=== PATIENT | female | born 1950 | race Two or more races ===

== ENCOUNTER → 2017-08-28 | Outpatient (CLI) | payer OTHER | END | disposition home or self-care (01) | LOC: RAD 12:30 | DX: M12.862 Other specific arthropathies, not elsewhere classified, left knee (principal); M17.12 Unilateral primary osteoarthritis, left knee ==

== ENCOUNTER 2018-01-06 12:44 | Outpatient (CLI) | payer OTHER | END 2018-01-06 12:50 | disposition home or self-care (01) | LOC: MAMO-SONO 12:44 | DX: Z12.31 Encounter for screening mammogram for malignant neoplasm of breast (principal); N62 Hypertrophy of breast; N95.0 Postmenopausal bleeding ==

== ENCOUNTER 2018-10-24 09:40 | Outpatient (CLI) | payer OTHER | END 2018-10-24 09:42 | disposition home or self-care (01) | LOC: RAD 09:40 | DX: M19.90 Unspecified osteoarthritis, unspecified site (principal); M12.88 Other specific arthropathies, not elsewhere classified, other specified site ==

== ENCOUNTER 2018-11-06 11:15 | Outpatient (CLI) | payer OTHER | END 2018-11-06 11:24 | disposition home or self-care (01) | LOC: SONOGRAMA 11:15 | DX: M12.9 Arthropathy, unspecified (principal) ==

== ENCOUNTER → 2019-09-28 | Outpatient (CLI) | payer OTHER | END | disposition home or self-care (01) | LOC: MAMO-SONO 10:15 | PROVIDERS: ATTEND Obstetrics & Gynecology Maternal & Fetal Medicine | DX: Z12.31 Encounter for screening mammogram for malignant neoplasm of breast (principal); N63.10 Unspecified lump in the right breast, unspecified quadrant; N63.20 Unspecified lump in the left breast, unspecified quadrant; N64.4 Mastodynia; N60.11 Diffuse cystic mastopathy of right breast ==

== ENCOUNTER 2019-10-07 14:20 | Outpatient (CLI) | payer OTHER | END 2019-10-07 14:33 | disposition home or self-care (01) | LOC: NUCLEAR 14:20 | PROVIDERS: ATTEND Obstetrics & Gynecology Maternal & Fetal Medicine | DX: M81.0 Age-related osteoporosis without current pathological fracture (principal) ==

== ENCOUNTER 2020-08-03 11:07 | Outpatient (CLI) | payer OTHER | END 2020-08-03 11:43 | disposition home or self-care (01) | LOC: RAD 11:07 | PROVIDERS: ATTEND Internal Medicine Cardiovascular Disease | DX: M54.5 Low back pain (principal); M48.47XA Fatigue fracture of vertebra, lumbosacral region, initial encounter for fracture ==

== ENCOUNTER 2020-11-03 08:17 | Outpatient (CLI) | payer OTHER | END 2020-11-03 08:37 | disposition home or self-care (01) | LOC: MAMO-SONO 08:17 | PROVIDERS: ATTEND Obstetrics & Gynecology Maternal & Fetal Medicine | DX: N60.11 Diffuse cystic mastopathy of right breast (principal); N63.0 Unspecified lump in unspecified breast; N64.4 Mastodynia; Z12.31 Encounter for screening mammogram for malignant neoplasm of breast ==

== ENCOUNTER 2020-12-28 12:35 | Outpatient (CLI) | payer OTHER | END 2020-12-28 12:38 | disposition home or self-care (01) | LOC: NUCLEAR 12:35 | PROVIDERS: ATTEND Obstetrics & Gynecology Maternal & Fetal Medicine | DX: M81.0 Age-related osteoporosis without current pathological fracture (principal) ==

== ENCOUNTER 2021-11-06 12:24 | Outpatient (CLI) | payer OTHER | END 2021-11-06 12:37 | disposition home or self-care (01) | LOC: MAMO-SONO 12:24 | PROVIDERS: ATTEND Obstetrics & Gynecology Maternal & Fetal Medicine | DX: Z12.31 Encounter for screening mammogram for malignant neoplasm of breast (principal); N63.0 Unspecified lump in unspecified breast; N64.4 Mastodynia; N60.11 Diffuse cystic mastopathy of right breast ==

== ENCOUNTER → 2021-11-10 | Outpatient (CLI) | payer OTHER | END | disposition home or self-care (01) | LOC: MRI 12:57 | PROVIDERS: ATTEND Obstetrics & Gynecology Maternal & Fetal Medicine | DX: T14.90XA Injury, unspecified, initial encounter (principal) | CPT/HCPCS: 72148 ==

== ENCOUNTER 2023-04-02 10:35 | Outpatient (CLI) | payer OTHER | END 2023-04-02 10:48 | disposition home or self-care (01) | LOC: MAMO-SONO 10:35 | PROVIDERS: ATTEND Obstetrics & Gynecology Maternal & Fetal Medicine | DX: N64.4 Mastodynia (principal); N60.11 Diffuse cystic mastopathy of right breast; N63.0 Unspecified lump in unspecified breast; Z12.31 Encounter for screening mammogram for malignant neoplasm of breast; R10.2 Pelvic and perineal pain ==

== ENCOUNTER 2023-12-03 12:49 | Outpatient (CLI) | payer OTHER | END 2023-12-03 12:55 | disposition home or self-care (01) | LOC: SONOGRAMA 12:49 | PROVIDERS: ATTEND Internal Medicine Cardiovascular Disease | DX: M12.9 Arthropathy, unspecified (principal) ==

== ENCOUNTER → 2024-04-03 | Outpatient (CLI) | payer OTHER | END | disposition home or self-care (01) | LOC: SONOGRAMA 10:17 | PROVIDERS: ATTEND Internal Medicine Cardiovascular Disease | DX: M12.9 Arthropathy, unspecified (principal) ==

== ENCOUNTER 2024-04-27 09:18 | Outpatient (CLI) | payer OTHER | END 2024-04-27 09:28 | disposition home or self-care (01) | LOC: MAMO-SONO 09:18 | PROVIDERS: ATTEND Obstetrics & Gynecology Maternal & Fetal Medicine | DX: N63.0 Unspecified lump in unspecified breast (principal); N64.4 Mastodynia; N60.11 Diffuse cystic mastopathy of right breast; Z12.31 Encounter for screening mammogram for malignant neoplasm of breast ==